=== PATIENT | male | born 2000 | race Caucasian/White ===

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

== ENCOUNTER 2020-04-14 19:53 | Emergency (ER) | payer MEDICAID ==
[~2020-04-14] VITALS: Ht 175.3 cm; Wt 56.7 kg
[2020-04-14 20:00] VITALS: BP_SYST 117
[2020-04-14] MEDS ORDERED: ACETAMINOPHEN 325 MG TABLET PO ONE (21:15)
[2020-04-14] MEDS ORDERED: LIDOCAINE 1%, 20 ML MDV 20 ML ONE (21:35)
[2020-04-14 21:39] VITALS: BP_SYST 117
== END 2020-04-14 21:39 | disposition home or self-care (01) ==
LOC: SED 19:53
DX: S01.81XA Laceration without foreign body of other part of head, initial encounter (principal); F90.9 Attention-deficit hyperactivity disorder, unspecified type; W22.8XXA Striking against or struck by other objects, initial encounter; Y93.89 Activity, other specified; Y92.89 Other specified places as the place of occurrence of the external cause; Y99.8 Other external cause status
CPT/HCPCS: 12011; 99283; J2001

== ENCOUNTER 2020-04-25 18:47 | Emergency (ER) | payer MEDICAID ==
[~2020-04-25] VITALS: Ht 175.3 cm; Wt 56.7 kg
[2020-04-25 18:56] VITALS: BP_SYST 124
--- NOTE | 2020-04-25 20:24 | NUR ---
Patient to ER bed H1 to gown for evaluation. Side rails up.
--- NOTE | 2020-04-25 20:28 | NUR ---
ER at bedside examining patient.
--- NOTE | 2020-04-25 20:30 | NUR ---
Pt presents to the ER for staple removal from head laceration on 04/14/2020. AxOx3, denies any pain, bleeding from laceration.
[2020-04-25 21:00] VITALS: BP_SYST 124
--- NOTE | 2020-04-25 21:00 | NUR ---
Patient given written and verbal discharge instructions and verbalizes understanding. ER MD discussed with patient the results and treatment provided. Patient in stable condition. ID arm band removed. Patient educated on pain management and to follow up with PMD. Pain Scale 0/10. Opportunity for questions provided and answered. Medication side effect fact sheet provided.
== END 2020-04-25 21:00 | disposition home or self-care (01) ==
LOC: SED 18:47
DX: S01.81XD Laceration without foreign body of other part of head, subsequent encounter (principal); X58.XXXD Exposure to other specified factors, subsequent encounter
CPT/HCPCS: 99281

== ENCOUNTER 2021-05-22 10:25 | Emergency (ER) | payer MEDICAID ==
[~2021-05-22] VITALS: Ht 177.8 cm; Wt 61.2 kg
[2021-05-22 10:25] VITALS: BP_SYST 129
[2021-05-22] MEDS ORDERED: DIPH-TET-PERTUS Vaccine 0.5 ML VIAL (ADACEL) I.M. ONE (10:45)
[2021-05-22] MEDS ORDERED: LIDOCAINE PF 1% 30ML(POUR BTL) INJ ONE (10:45)
[2021-05-22] MEDS ORDERED: HYDROcodone/ACETAMIN 5-325 MG TAB (NORCO/ VICODIN) PO ONE ×2 (10:45→11:30)
[2021-05-22] MEDS ORDERED: LIDOCAINE 1%, 20 ML MDV 20 ML ONE (10:49)
[2021-05-22] MEDS ORDERED: ONDANSETRON 4 MG ODT TAB PO ONE (11:30)
[2021-05-22 12:32] VITALS: BP_SYST 129
== END 2021-05-22 12:32 | disposition home or self-care (01) ==
LOC: SED 10:25
DX: S61.211A Laceration without foreign body of left index finger without damage to nail, initial encounter (principal); W29.3XXA Contact with powered garden and outdoor hand tools and machinery, initial encounter; Y93.89 Activity, other specified; Y92.89 Other specified places as the place of occurrence of the external cause; Y99.8 Other external cause status
CPT/HCPCS: 12001; 73140; 90471; 90715; 99284; J2001 ×2; Q0162

== ENCOUNTER 2022-10-01 08:41 | Emergency (ER) | payer MEDICAID ==
[~2022-10-01] VITALS: Ht 177.8 cm; Wt 63.5 kg
[2022-10-01 09:02] VITALS: BP_SYST 101
--- NOTE | 2022-10-01 09:15 | NUR ---
BIB TO ROOM, PLACED IN GOWN, ATTACHED TO MONITOR. REPORT TO DELIVERY ROOM SUPERVISOR.
--- NOTE | 2022-10-01 09:20 | NUR ---
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
--- NOTE | 2022-10-01 09:35 | NUR ---
patient ambulartory to er c/o generalize body pain, had covid and negative now. place in room 1 awaiting for edp for initial assessment.
[2022-10-01] MEDS ORDERED: MAG HYDROX/AL HYDROX/SIMETH 30 ML, LIDOCAINE VISCOUS 2% 15ML (PO) 15 ML, DICYCLOMINE HC... PO ONE ×3 (10:45)
[2022-10-01] MEDS ORDERED: OSELTAMIVIR PHOSPHATE 75 MG CAPSULE PO ONE (10:45)
[2022-10-01] MEDS ORDERED: ONDANSETRON HCL 4 MG/2 ML VIAL IVP ONE (10:45)
[2022-10-01] MEDS ORDERED: ACETAMINOPHEN 500 MG TABLET PO ONE (11:00)
--- NOTE | 2022-10-01 11:10 | NUR ---
.PATIENT VOMITED, EDP MADE AWARE
[2022-10-01 11:34] LABS: ALBUMIN 3.3 g/dL (3.4-4.8); CALCIUM 7.7 mg/dL (8.4-11.0); CREATININE 1.32 mg/dL (0.55-1.30); TOTAL BILIRUBIN 0.4 mg/dL (0.0-1.0)
[2022-10-01 11:49] LABS: HEMATOCRIT 39.8 % (36-54); HEMOGLOBIN 13.6 g/dL (14.0-18.0); MEAN CORPUSCULAR HEMOGLOBIN 29 pg (27-31); MEAN CORPUSCULAR HGB CONC 34 % (32-36); MEAN CORPUSCULAR VOLUME 84 fL (79.0-98.0); PLATELET COUNT (AUTO) 187 K/uL (130-430); RED BLOOD CELL COUNT(AUTO) 4.77 MIL/uL (4.2-6.2); RED CELL DISTRIBUTION WIDTH 13.8 % (9.0-15.0); WHITE BLOOD COUNT (AUTO) 7.2 K/uL (4.8-10.8)
[2022-10-01] MEDS ORDERED: NACL 0.9% 1,000 ML IV ONE ×2 (12:00→12:45)
--- NOTE | 2022-10-01 12:00 | NUR ---
PATIENT REMAINS IN BED, EDP REASSESS PATIENT WITH ORDER JESUS OUT.
--- NOTE | 2022-10-01 13:48 | NUR ---
PATIENT RECEIVING 3RD LITER OF N/S
[2022-10-01] MEDS ORDERED: DICY10CA13 PO (14:35)
[2022-10-01] MEDS ORDERED: ONDA-8 TL (14:35)
[2022-10-01] MEDS ORDERED: OMEP40CA20 PO (14:35)
--- NOTE | 2022-10-01 14:58 | NUR ---
all result back edp reassess patient and d/c home with instruction. h/l removed skin intact.
[2022-10-01 14:59] VITALS: BP_SYST 98
--- NOTE | 2022-10-01 15:06 | NUR ---
Patient given written and verbal discharge instructions and verbalizes understanding. ER MD discussed with patient the results and treatment provided. Patient in stable condition. ID arm band removed. IV catheter removed intact and dressing applied, no active bleeding. Rx of protonix given. Patient educated on pain management and to follow up with PMD. Pain Scale . Opportunity for questions provided and answered. Medication side effect fact sheet provided.
[2022-10-02] MEDS ORDERED: OSEL75CA PO (06:37)
== END 2022-10-01 15:00 | disposition home or self-care (01) ==
LOC: SED 08:41
DX: J10.1 Influenza due to other identified influenza virus with other respiratory manifestations (principal); E86.0 Dehydration; K29.00 Acute gastritis without bleeding; R50.9 Fever, unspecified; R05.9 Cough, unspecified; R11.2 Nausea with vomiting, unspecified; F10.129 Alcohol abuse with intoxication, unspecified; Z79.1 Long term (current) use of non-steroidal anti-inflammatories (NSAID); Z79.899 Other long term (current) drug therapy; Z20.822 Contact with and (suspected) exposure to COVID-19; Y90.6 Blood alcohol level of 120-199 mg/100 ml
CPT/HCPCS: 80053; 83690; 85014; 85049; 85048; 36415; 99285; 96374; 83051; 87804 ×2; 87426; G9035; J2001; J2405